=== PATIENT | female | born 1980 ===

== ENCOUNTER 2021-03-03 15:17 | Emergency (ER) | payer OTHER ==
[~2021-03-03] VITALS: Ht 160 cm; Wt 77.1 kg
[2021-03-03] MEDS ORDERED: LEVOTHYROXINE25 MCG (16:06)
[2021-03-03] MEDS ORDERED: SIMVASTATIN40 MG (16:06)
== END 2021-03-03 19:25 | disposition home or self-care (01) ==
LOC: ER 15:17
DX: H60.8X2 Other otitis externa, left ear (principal)